=== PATIENT | male | born 1965 | race Caucasian/White ===

== ENCOUNTER 2022-08-10 06:55 | Day surgery (SDC) | payer BC ==
[~2022-08-10] VITALS: Ht 193 cm; Wt 89.3 kg
[2022-08-10] MEDS ORDERED: ZESTRIL40 M1 (07:12)
[2022-08-10] MEDS ORDERED: ATOR20 (07:12)
[2022-08-10] MEDS ORDERED: AMLO5 (07:12)
[2022-08-10 09:19] VITALS: BP 134/87
--- NOTE | 2022-08-10 09:32 | NUR ---
08/10/22 0932 SHARAD CHENG PT AND WATING FOR AN UBER TO PICK THEM UP. PT EDUCATE ON WAITING IN SD TO DRIVE UNTIL TOMORROW.
== END 2022-08-10 09:32 | disposition home or self-care (01) ==
LOC: ORSCSDS 06:55
PROVIDERS: Internal Medicine Gastroenterology
PROC: 0DBH8ZX Excision of Cecum, Via Natural or Artificial Opening Endoscopic, Diagnostic (ICD-10-PCS; principal; 2022-08-10 08:15)
PROC: 0DBL8ZX Excision of Transverse Colon, Via Natural or Artificial Opening Endoscopic, Diagnostic (ICD-10-PCS; principal; 2022-08-10 08:15)
DX: Z12.11 Encounter for screening for malignant neoplasm of colon (principal); D12.0 Benign neoplasm of cecum; D12.3 Benign neoplasm of transverse colon; K64.8 Other hemorrhoids; F17.210 Nicotine dependence, cigarettes, uncomplicated; I10 Essential (primary) hypertension; E11.9 Type 2 diabetes mellitus without complications; Z79.899 Other long term (current) drug therapy
CPT/HCPCS: 82947; 88305; J2405; J2704; J7120